=== PATIENT | female | born 1955 | race Caucasian/White ===

== ENCOUNTER 2017-12-16 19:27 | Emergency (ER) | payer OTHER ==
[~2017-12-16] VITALS: Ht 157.5 cm; Wt 65.0 kg
[~2017-12-16 19:27] MED LIST: ALPR.25 PO; ATEN50TA PO; CHOL1CAP2 PO; SERT-132 PO
[2017-12-16 19:32] VITALS: BP 112/62; PULSE 69; RESP 20; TEMP 98.2; O2SAT 98
[2017-12-16] MEDS ORDERED: CHOL1CAP2 PO (19:40)
[2017-12-16] MEDS ORDERED: CARV6.252 PO (19:40)
[2017-12-16] MEDS ORDERED: NITR0.4S SL (19:40)
[2017-12-16] MEDS ORDERED: VENTAER INH (19:40)
[2017-12-16] MEDS ORDERED: AMLO5TAB2 PO (19:40)
[2017-12-16] MEDS ORDERED: SERT-132 PO (19:40)
[2017-12-16] MEDS ORDERED: LOVA40TA PO (19:41)
[2017-12-16] MEDS ORDERED: SODIUM CHLORIDE 0.9% FLUSH 10 ML FLUSH IVF PRN (19:45)
[2017-12-16] MEDS ORDERED: ACETAMINOPHEN 500 MG CPLT PO ONE (19:45)
--- NOTE | 2017-12-16 19:47 | PD ---
HPI Chief Complaint: Cardiac Complaint Time Seen by Provider: 19:41 Travel History International Travel<30 days: No Contact w/Intl Traveler<30days: No Traveled to known affect area: No History of Present Illness HPI This is a 62-year-old female who presents to the emergency department with chest discomfort that started while she was at the bar. She describes it as heaviness in the left side of her chest, nonradiating, associated with nausea and shortness of breath ultimately causing her to pass out. She hit her head and lost consciousness. She says she has had a heart attack in the past. She has a known blockage but did not want intervened on. She has a transition specialist that she follows with. She does acknowledge drinking alcohol today. PFSH Past Medical History Anxiety: Yes Depression: Yes Coronary Artery Disease: Yes Diminished Hearing: No Hypertension: Yes Past Surgical History Hysterectomy: Yes Tonsillectomy: Yes Other Surgery: Yes (ORAL SURGERY) Social History Alcohol Use: Yes ([employer] ON WEEKEND) Tobacco Use: Yes (ONE AND A HALF PPD) Substance Use: No Allergies-Medications (Allergen,Severity, Reaction): Coded Allergies: benazepril (Unverified Allergy, Mild, THROAT SWELLS, 12/16/17) captopril (Unverified Allergy, Mild, THROAT SWELLS, 12/16/17) codeine (Unverified Allergy, Mild, N/V, 12/16/17) enalaprilat (Unverified Allergy, Mild, THROAT SWELLS, 12/16/17) fosinopril (Unverified Allergy, Mild, THROAT SWELLS, 12/16/17) lisinopril (Unverified Allergy, Mild, THROAT SWELLS, 12/16/17) quinapril (Unverified Allergy, Mild, THROAT SWELLS, 12/16/17) Fish Containing Products (Unverified Adverse Reaction, Severe, 12/16/17) iodine (Unverified Adverse Reaction, Severe, 12/16/17) potassium iodide (Unverified Adverse Reaction, Severe, 12/16/17) povidone-iodine (Unverified Adverse Reaction, Severe, 12/16/17) sodium iodide (Unverified Adverse Reaction, Severe, 12/16/17) sodium iodide (Unverified Adverse Reaction, Severe, 12/16/17) Uncoded Allergies: CATS (Allergy, Mild, SWELLING, 05/26/16) Reported Meds & Prescriptions Reported Meds & Active Scripts Active Reported Lovastatin 40 Mg Tab 40 Mg PO DAILY Nitrostat SL (Nitroglycerin) 0.4 Mg Subl 0.4 Mg SL DIRECTED PRN 1 tablet under the tongue as needed for chest pain. Repeat every 5 minutes for a total of 3 DOSES or call 911 if NO relief. Ventolin Hfa 18 GM Inh (Albuterol Sulfate) 90 Mcg/Act Aer 2 Puff INH Q6H PRN Sertraline (Sertraline HCl) 50 Mg Tab 50 Mg PO HS Fenofibric Acid Dr (Choline Fenofibrate DR) 135 mg Capdr 135 Mg PO HS Amlodipine (Amlodipine Besylate) 5 Mg Tab 5 Mg PO DAILY Carvedilol 6.25 Mg Tab 6.25 Mg PO BID Review of Systems Except as stated in HPI: all other systems reviewed are Neg Physical Exam Narrative GENERAL:Well appearing, no acute distress SKIN: Focused skin assessment warm and dry. HEAD: Atraumatic. Normocephalic. EYES: Pupils equal and round. No injection or drainage. ENT: Moist mucous membranes NECK: Trachea midline. CARDIOVASCULAR: Regular rate and rhythm. No murmur appreciated. RESPIRATORY: Clear to auscultation. Breath sounds equal bilaterally. GASTROINTESTINAL: Abdomen soft, non-tender, nondistended. MUSCULOSKELETAL: No obvious deformities. NEUROLOGICAL: Awake and alert. No obvious cranial nerve deficits. Moving all extremities. PSYCHIATRIC: Appropriate mood and affect; insight and judgment normal. Data Data Last Documented VS Vital Signs Date Time Temp Pulse Resp B/P (MAP) Pulse Ox O2 Delivery O2 Flow Rate FiO2 12/17/17 05:51 98.1 78 18 116/70 (85) 98 Room Air Orders Orders Electrocardiogram (12/16/17 19:41) Complete Blood Count With Diff (12/16/17 19:41) Comprehensive Metabolic Panel (12/16/17 19:41) Troponin I (12/16/17 19:41) Lipase (12/16/17 19:41) Chest, Single Ap (12/16/17 19:41) Ecg Monitoring (12/16/17 19:41) Bilateral Bp Monitoring (12/16/17 19:41) Iv Access Insert/Monitor (12/16/17 19:41) Oximetry (12/16/17 19:41) Oxygen Administration (12/16/17 19:41) Sodium Chloride 0.9% Flush (Ns Flush) (12/16/17 19:45) Ct Brain W/O Iv Contrast(Rout) (12/16/17 ) Ct Cerv Spine W/O Contrast (12/16/17 ) Apply Cervical Collar (12/16/17 19:41) Acetaminophen (Tylenol) (12/16/17 19:45) Alcohol (Ethanol) (12/16/17 19:47) Sodium Chlor 0.9% 1000 Ml Inj (Ns 1000 M (12/16/17 22:45) Thiamine Inj (Thiamine Inj) (12/16/17 22:45) Troponin I (12/16/17 23:19) Labs Laboratory Tests Test 12/16/17 19:45 12/16/17 23:30 White Blood Count 10.1 TH/MM3 Red Blood Count 4.53 MIL/MM3 Hemoglobin 14.4 GM/DL Hematocrit 42.1 % Mean Corpuscular Volume 93.0 FL Mean Corpuscular Hemoglobin 31.9 PG Mean Corpuscular Hemoglobin Concent 34.3 % Red Cell Distribution Width 14.2 % Platelet Count 255 TH/MM3 Mean Platelet Volume 8.2 FL Neutrophils (%) (Auto) 52.3 % Lymphocytes (%) (Auto) 39.3 % Monocytes (%) (Auto) 6.0 % Eosinophils (%) (Auto) 1.8 % Basophils (%) (Auto) 0.6 % Neutrophils # (Auto) 5.3 TH/MM3 Lymphocytes # (Auto) 4.0 TH/MM3 Monocytes # (Auto) 0.6 TH/MM3 Eosinophils # (Auto) 0.2 TH/MM3 Basophils # (Auto) 0.1 TH/MM3 CBC Comment DIFF FINAL Differential Comment Blood Urea Nitrogen 14 MG/DL Creatinine 0.77 MG/DL Random Glucose 109 MG/DL Total Protein 6.6 GM/DL Albumin 3.4 GM/DL Calcium Level 8.5 MG/DL Alkaline Phosphatase 59 U/L Aspartate Amino Transf (AST/SGOT) 16 U/L Alanine Aminotransferase (ALT/SGPT) 19 U/L Total Bilirubin 0.3 MG/DL Sodium Level 133 MEQ/L Potassium Level 3.2 MEQ/L Chloride Level 100 MEQ/L Carbon Dioxide Level 19.6 MEQ/L Anion Gap 13 MEQ/L Estimat Glomerular Filtration Rate 76 ML/MIN Troponin I LESS THAN 0.02 NG/ML LESS THAN 0.02 NG/ML Lipase 91 U/L Ethyl Alcohol Level 253 MG/DL [facility] Medical Decision Making Medical Screen Exam Complete: Yes Emergency Medical Condition: Yes Interpretation(s) EKG: LBBB no leukocytosis mild hyponatremia, mild hypokalemia troponin neg x2 alcohol 253 Last 24 hours Impressions Chest X-Ray 12/16/17 1941 Signed Impressions: CONCLUSION: No active disease. Head CT 12/16/17 0000 Signed Impressions: CONCLUSION: 1. No acute intracranial abnormalities. Cervical Spine CT 12/16/17 0000 Signed Impressions: CONCLUSION: 1. No acute findings. Moderate degenerative change at C5-6 with mild stenosis. Differential Diagnosis Intracranial hemorrhage, cervical spine fracture, myocardial infarction, arrhythmia, electrolyte abnormality Narrative Course This is a 62-year-old female who presents to the emergency department intoxicated who had an episode of chest discomfort and syncope. She is placed in a monitor and an IV was established. Labs are reassuring including troponin which is negative 2. CT of the head and cervical spine are unremarkable. Patient was evaluated when sober. She is a patient of Dr. Langley. She has been told she has a blockage but she does not want a catheterization and she has discussed this with him in the past. I offered her admission but she declined because she does not want a cardiac catheterization.. She has decision making capacity on my assessment. I did burns paiute her on alcohol cessation Procedures Procedure Narrative Laceration repair: 2 cm laceration over the left eyebrow was repaired using Steri-Strips and glue. Diagnosis Primary Impression: Alcohol intoxication Qualified Codes: F10.920 - Alcohol use, unspecified with intoxication, uncomplicated Additional Impression: Syncope Qualified Codes: R55 - Syncope and collapse Patient Instructions: General Instructions Additional Instructions: Follow up with Daniel Booker in regards to psychiatric or substance related issues at: [address] [place] [id number] Med/Other Pt SpecificInfo: No Change to Meds Disposition: 01 DISCHARGE HOME Condition: Stable Cheryl Andersen MD Dec 16, 2017 19:47
[2017-12-16 19:58] LABS: AUTOMATED NEUTROPHIL # 5.3 TH/MM3 (1.8-7.7); BASOPHIL # 0.1 TH/MM3 (0-0.2); BASOPHIL % 0.6 % (0.0-2.0); EOSINOPHIL # 0.2 TH/MM3 (0-0.4); EOSINOPHIL % 1.8 % (0.0-4.0); HEMATOCRIT 42.1 % (35.0-46.0); HEMOGLOBIN 14.4 GM/DL (11.6-15.3); LYMPH % 39.3 % (9.0-44.0); MEAN CORPUSCULAR HEMOGLOBIN 31.9 PG (27.0-34.0); MEAN CORPUSCULAR HGB CONC 34.3 % (32.0-36.0); MEAN PLATELET VOLUME 8.2 FL (7.0-11.0); MONOCYTE # 0.6 TH/MM3 (0-0.9); NEUT % 52.3 % (16.0-70.0); PLATELET COUNT 255 TH/MM3 (150-450); RED BLOOD COUNT 4.53 MIL/MM3 (4.00-5.30); RED CELL DISTRIBUTION WIDTH 14.2 % (11.6-17.2); WHITE BLOOD COUNT 10.1 TH/MM3 (4.0-11.0)
[2017-12-16 20:00] VITALS: O2SAT 99
[2017-12-16 20:01] VITALS: BP_SYST 112; BP_SYST 121; BP_DIAS 60; BP_DIAS 62; PULSE 71; RESP 18; O2SAT 99
--- NOTE | 2017-12-16 20:33 | RADRPT ---
EXAM DATE: 12/16/2017 8:03 PM EDT AGE/SEX: 62 years / Female INDICATIONS: Chest pain. CLINICAL DATA: This is the patient's initial encounter. Patient reports that signs and symptoms have been present for 1 day and indicates a pain score of 8/10. MEDICAL/SURGICAL HISTORY: Hypertension. Hysterectomy. Tonsillectomy. COMPARISON: No prior exams available for comparison. FINDINGS: A single AP view of the chest demonstrates the lungs to be symmetrically aerated without evidence of mass, infiltrate or effusion. The cardiomediastinal contours are unremarkable. Osseous structures a re intact. CONCLUSION: No active disease. Electronically signed by: Eran Mattson MD 12/16/2017 8:32 PM EDT
[2017-12-16 20:44] LABS: ALBUMIN 3.4 GM/DL (3.4-5.0); ALT (GPT) 19 U/L (10-53); AST (GOT) 16 U/L (15-37); BICARBONATE 19.6 MEQ/L (21.0-32.0); BLOOD UREA NITROGEN 14 MG/DL (7-18); CALCIUM 8.5 MG/DL (8.5-10.1); CHLORIDE 100 MEQ/L (98-107); CREATININE 0.77 MG/DL (0.50-1.00); GLOMERULAR FILTRATION RATE 76 ML/MIN (>89); GLUCOSE,RANDOM 109 MG/DL (74-106); SODIUM (NA) 133 MEQ/L (136-145)
[2017-12-16 20:48] LABS: ALKALINE PHOSPHATASE 59 U/L (45-117); TOTAL BILIRUBIN ADULT 0.3 MG/DL (0.2-1.0); TOTAL PROTEIN 6.6 GM/DL (6.4-8.2); TROPONIN I LESS THAN 0.02 NG/ML (0.02-0.05)
--- NOTE | 2017-12-16 20:50 | RADRPT ---
EXAM DATE: 12/16/2017 8:27 PM EDT AGE/SEX: 62 years / Female INDICATIONS: Trauma; fall. CLINICAL DATA: This is the patient's initial encounter. Patient reports that signs and symptoms have been present for 1 day and indicates a pain score of 4/10. MEDICAL/SURGICAL HISTORY: Hypertension. Cardiovascular disease. Hysterectomy. RADIATION DOSE: 31.26 CTDI (mGy) COMPARISON: No prior exams available for comparison. TECHNIQUE: CT of the head without contrast. Using automated exposure control and adjustment of the mA and/or kV according to patient size, radiation dose was kept as low as reasonably achievable to ob tain optimal diagnostic quality images. DICOM format image data is available electronically for revi ew and comparison. FINDINGS: Cerebrum: The ventricles are normal for age. No evidence of midline shift, mass lesion, hemorrhage or acute infarction. No extraaxial fluid collections are seen. Posterior Fossa: The cerebellum and brainstem are intact. The 4th ventricle is midline. The cerebe llopontine angle is unremarkable. Extracranial: The visualized portion of the orbits is intact. Skull: The calvaria is intact. No evidence of skull fracture. CONCLUSION: 1. No acute intracranial abnormalities. Electronically signed by: Eran Mattson MD 12/16/2017 8:49 PM EDT
--- NOTE | 2017-12-16 20:53 | RADRPT ---
EXAM DATE: 12/16/2017 8:32 PM EDT AGE/SEX: 62 years / Female INDICATIONS: Trauma; fall. CLINICAL DATA: This is the patient's initial encounter. Patient reports that signs and symptoms have been present for 1 day and indicates a pain score of 4/10. MEDICAL/SURGICAL HISTORY: Hypertension. Cardiovascular disease. Hysterectomy. RADIATION DOSE: 12.92 CTDI (mGy) COMPARISON: No prior exams available for comparison. TECHNIQUE: Contiguous axial images were obtained using helical multirow detector technique. The vol umetric data was post-processed with multiplanar reconstruction in oblique axial, sagittal, and coron al planes. Using automated exposure control and adjustment of the mA and/or kV according to patient s ize, radiation dose was kept as low as reasonably achievable to obtain optimal diagnostic quality katie ges. DICOM format image data is available electronically for review and comparison. FINDINGS: No acute fracture or spondylolisthesis. Moderate degenerative changes at C5-6 with mild canal and for aminal stenosis. No other canal stenosis. Normal alignment. No prevertebral soft tissue swelling. CONCLUSION: 1. No acute findings. Moderate degenerative change at C5-6 with mild stenosis. Electronically signed by: Eran Mattson MD 12/16/2017 8:51 PM EDT
[2017-12-16 21:00] VITALS: BP 127/70; PULSE 68; RESP 16; O2SAT 98
[2017-12-16 22:12] VITALS: BP 127/54; PULSE 68; RESP 18; O2SAT 99
[2017-12-16] MEDS ORDERED: SODIUM CHLOR 0.9% 1000 ML INJ 1,000 ML IV SCH (22:45)
[2017-12-16] MEDS ORDERED: THIAMINE INJ 100 MG in SODIUM CHLORIDE 0.9% INJ 100 ML IV ONE (22:45)
[2017-12-17 01:02] VITALS: BP 117/67; PULSE 78; RESP 18; O2SAT 99
[2017-12-17 05:51] VITALS: BP 116/70; PULSE 78; RESP 18; TEMP 98.1; O2SAT 98
--- NOTE | 2017-12-17 14:32 | EKG ---
Date Performed: 12/16/2017 Time Performed: 19:36:06 PTAGE: 62 years EKG: SINUS BRADYCARDIA POSSIBLE LEFT ATRIAL ENLARGEMENT LEFT BUNDLE BRANCH BLOCK ABNORMAL ECG Co mpared to PREVIOUS TRACING , left bundle branch block is new. PREVIOUS TRACIN08/11/2006 09.48 DOCTOR: Enoc Laguerre Interpretating Date/Time 12/17/2017 14:32:07
== END 2017-12-17 09:07 | disposition home or self-care (01) ==
LOC: NEPE 19:27
DX: F10.129 Alcohol abuse with intoxication, unspecified (principal); S01.112A Laceration without foreign body of left eyelid and periocular area, initial encounter; F17.200 Nicotine dependence, unspecified, uncomplicated; I10 Essential (primary) hypertension; I25.10 Atherosclerotic heart disease of native coronary artery without angina pectoris; F32.9 Major depressive disorder, single episode, unspecified; W19.XXXA Unspecified fall, initial encounter; Y90.8 Blood alcohol level of 240 mg/100 ml or more; Y92.89 Other specified places as the place of occurrence of the external cause; Z79.899 Other long term (current) drug therapy
CPT/HCPCS: 12011; 70450; 71045; 72125; 80053; 80307; 83690; 84484; 85025; 93005; 96365; 99285; J3411; J7030